=== PATIENT | female | born 1980 | race African-American/Black ===

== ENCOUNTER 2019-03-21 22:20 | Emergency (ER) | payer BC, MEDICAID ==
[~2019-03-21] VITALS: Ht 167.6 cm; Wt 91.0 kg
[2019-03-21 23:23] LABS: BASOPHILS % 0.2 % (0.0-2.0); EOSINOPHILS % 0.2 % (0.0-5.0); HEMATOCRIT. 37.9 % (36.0-48.0); HEMOGLOBIN. 12.5 g/dL (12.0-16.0); LYMPHOCYTES % 23.1 % (20.0-50.0); MEAN CORPUSCULAR HEMOGLOBIN 29.8 pg (28.0-32.0); MEAN CORPUSCULAR VOLUME 90.7 fL (81.0-99.0); MEAN PLATELET VOLUME 9.7 fl (7.4-10.4); MONOCYTES % 5.9 % (2.0-8.0); NEUTROPHILS % 70.6 % (40.0-76.0); PLATELET 184 x1000/uL (130-400); RED BLOOD CELL COUNT 4.18 mill/uL (4.2-5.4); RED CELL DISTRIBUTION WIDTH 13.5 % (11.6-14.6)
[2019-03-21 23:26] LABS: CHLORIDE 112 mEq/L (98-107)
[2019-03-21 23:29] LABS: ETHANOL BLOOD 84 mg/dL
[2019-03-22] MEDS ORDERED: ONDANSETRON 4MG ODT PO ONE (00:15)
[2019-03-22] MEDS ORDERED: LORAZEPAM 1MG TABLET PO ONE (00:30)
[2019-03-22 00:48] LABS: CLARITY URINE CLEAR (CLEAR); COLOR URINE YELLOW (YELLOW); KETONES URINE NEGATIVE (NEGATIVE); LEUKOCYTE ESTERASE URINE NEGATIVE (NEGATIVE); NITRITE URINE NEGATIVE (NEGATIVE); OCCULT BLOOD URINE TRACE (NEGATIVE); PH URINE 7.5 (4.5-8.0); PROTEIN URINE NEGATIVE (NEGATIVE); SPECIFIC GRAVITY URINE 1.008 (1.005-1.030)
[2019-03-22 01:08] LABS: *BARBITURATES SCREEN URINE NEGATIVE (NEGATIVE)
[2019-03-22 01:09] LABS: *AMPHETAMINES SCREEN URINE NEGATIVE (NEGATIVE); *BENZODIAZEPINES SCREEN URINE NEGATIVE (NEGATIVE); *COCAINE SCREEN URINE NEGATIVE (NEGATIVE); METHADONE URINE SCREEN NEGATIVE (NEGATIVE); OPIATES URINE SCREEN NEGATIVE (NEGATIVE); PHENCYCLIDINE URINE SCREEN NEGATIVE (NEGATIVE)
[2019-03-22 01:11] LABS: CANNABINOID URINE SCREEN NEGATIVE (NEGATIVE)
[2019-03-22] MEDS ORDERED: DIPHENHYDRAMINE 25MG CAPSULE PO ONE (03:00)
[2019-03-22] MEDS ORDERED: LORAZEPAM 2MG/ML CPJ IM PRN (07:15)
[2019-03-22] MEDS ORDERED: HALOPERIDOL LACTATE 5MG/ML VIAL IM ONE (07:15)
[2019-03-22 09:15] VITALS: BP 136/88
== END 2019-03-22 09:15 | disposition home or self-care (01) ==
LOC: ER 22:20
DX: F10.129 Alcohol abuse with intoxication, unspecified (principal); F32.9 Major depressive disorder, single episode, unspecified; I10 Essential (primary) hypertension; F20.9 Schizophrenia, unspecified; F17.210 Nicotine dependence, cigarettes, uncomplicated; Y90.4 Blood alcohol level of 80-99 mg/100 ml; Z78.1 Physical restraint status; Z88.0 Allergy status to penicillin
CPT/HCPCS: 36415; 80053; 80305; 80307; 80320; 80329; 81003; 81025; 82962; 85025; 96372; 99284; J1630; J2060; Q0162; Q0163; G0480